=== PATIENT | male | born 1950 | race Caucasian/White ===

== ENCOUNTER 2017-03-02 15:33 | Observation (INO) | payer MEDICARE, OTHER ==
[~2017-03-02] VITALS: Ht 177.8 cm; Wt 84.9 kg
[2017-03-02] MEDS ORDERED: PREVACID 30MG30 M1 PO (15:44)
[2017-03-02] MEDS ORDERED: TOPROL XL100 MG PO (15:44)
[2017-03-02] MEDS ORDERED: ALLEGRA ODT30 MG PO (15:44)
[2017-03-02] MEDS ORDERED: VALTREX 50500 MG/TAB PO (15:45)
[2017-03-02 16:35] LABS: BASO % 0.5 % (0.0-2.0); EOS # 0.2 (0.0-0.7); EOS % 3.3 % (0-4.0); GRAN # 5.4 (1.4-6.5); HEMATOCRIT 43.2 % (42.0-52.0); LYMPH # 1.1 (1.2-3.4); LYMPH % 14.6 % (20.0-51.0); MEAN CELL VOLUME 89 fl (80.0-100.0); MEAN CORPUSCULAR HEMOGLOBIN 31 pg (27.0-31.0); MEAN CORPUSCULAR HGB CONC 35 g/dl (33.0-37.0); MEAN PLATELET VOLUME 9.2 fl (7.4-10.4); MONO # 0.6 (0.1-0.6); MONO % 8.3 % (1.7-9.3); PLATELET COUNT 210 K/mm3 (130-400); RED BLOOD COUNT 4.86 M/mm3 (4.20-5.60); REDCELL DISTRIBUTION WIDTH-CV 13.3 % (11.5-14.5); WHITE BLOOD COUNT 7.4 K/mm3 (4.8-10.8)
[2017-03-02 16:41] LABS: PROTHROMBIN TIME 11.2 SECONDS (9.7-12.8)
[2017-03-02 16:49] LABS: ADJUSTED CALCIUM 8.8 mg/dL (8.4-10.2); ALANINE AMINOTRANSFERASE 34 U/L (21-72); ALBUMIN 3.9 gm/dL (3.5-5.0); ALKALINE PHOSPHATASE 50 U/L (50-136); ANION GAP 12 mmol/L (7-16); BILIRUBIN,TOTAL 0.8 mg/dL (0.0-1.0); BLOOD UREA NITROGEN 21 mg/dL (9-20); CALCIUM 8.7 mg/dL (8.4-10.2); CARBON DIOXIDE 24 mmol/L (22-30); CHLORIDE 106 mmol/L (98-107); CREATININE, serum 1.54 mg/dL (0.66-1.25); GLUCOSE 93 mg/dL (74-106); SODIUM 142 mmol/L (137-145); TOTAL PROTEIN 7.4 gm/dL (6.4-8.2)
[2017-03-02 16:50] LABS: C-REACTIVE PROTEIN < 0.5 mg/dL (0.0-0.9)
[2017-03-02 19:11] VITALS: BP 147/89; PULSE 51; TEMP 97.6
[2017-03-02 22:57] VITALS: BP 140/91; PULSE 55; TEMP 97.5
[2017-03-03 03:43] VITALS: BP 109/59; PULSE 52; TEMP 97.9
[2017-03-03 09:52] LABS: CALCIUM 8.7 mg/dL (8.4-10.2); CREATININE, serum 1.48 mg/dL (0.66-1.25); POTASSIUM 3.9 mmol/L (3.4-5.0)
[2017-03-03 09:56] VITALS: BP 129/81; PULSE 53; TEMP 98.1
[2017-03-03 11:34] VITALS: BP 135/84; PULSE 50; TEMP 98.2
[2017-03-03 15:22] VITALS: BP 125/80; PULSE 53; TEMP 97.6
[2017-03-03 15:36] LABS: THYROID STIMULATING HORMONE 1.05 uIU/mL (0.465-4.680)
[2017-03-03 20:14] VITALS: BP 145/87; PULSE 52; TEMP 98.2
[2017-03-04 01:18] VITALS: BP 98/65; PULSE 51; TEMP 98.4
[2017-03-04 04:58] VITALS: BP 131/73; PULSE 57; TEMP 98
[2017-03-04 07:10] VITALS: BP 131/81; PULSE 50; TEMP 97.4
[2017-03-04 13:23] VITALS: BP 141/95; PULSE 84; TEMP 97.2
[2017-03-04] MEDS ORDERED: PLAVIX 75MG TAB75 MG PO (14:06)
[2017-03-04] MEDS ORDERED: TOPROL XL 50MG50 MG PO (14:07)
[2017-03-04] MEDS ORDERED: ASPIRIN 32325 MG/TAB PO (14:08)
[2017-03-04 17:31] LABS: HOMOCYSTEINE 8.6 umol/L (5.5-16.2)
== END 2017-03-04 16:20 | disposition home or self-care (01) ==
LOC: COL.ER 15:33 → MEDICAL 18:33
PROVIDERS: Family Medicine; Nurse Practitioner Family; Psychiatry & Neurology Neurology
DX: H53.2 Diplopia (principal); R27.0 Ataxia, unspecified; R00.1 Bradycardia, unspecified; K21.9 Gastro-esophageal reflux disease without esophagitis; I12.9 Hypertensive chronic kidney disease with stage 1 through stage 4 chronic kidney disease, or unspecified chronic kidney disease; N18.9 Chronic kidney disease, unspecified; B00.9 Herpesviral infection, unspecified; I08.2 Rheumatic disorders of both aortic and tricuspid valves; J30.2 Other seasonal allergic rhinitis; Z82.3 Family history of stroke; Z80.9 Family history of malignant neoplasm, unspecified; Z82.49 Family history of ischemic heart disease and other diseases of the circulatory system
CPT/HCPCS: 99232-AI; 99239; G0378; G8978-GP; G8979-GP; G8980-GP